=== PATIENT | male | born 1990 | race Hispanic/Latino ===

== ENCOUNTER 2021-10-07 11:28 | Emergency (ER) | payer BC ==
--- NOTE | 2021-10-07 12:44 | RAD REPORT ---
EXAM DESCRIPTION: CT - Head C Spine Mpr Wo Con - 10/07/2021 12:23 pm CLINICAL HISTORY: Head and neck injury status post fall. Head and neck pain COMPARISON: None. TECHNIQUE: Computed axial tomography of the head and cervical spine was obtained. Sagittal and coronal reconstruction was performed. All CT scans are performed using dose optimization technique as appropriate and may include automated exposure control or mA/KV adjustment according to patient size. FINDINGS: An intracranial bleed is not seen. The ventricles are normal in caliber. An extra-axial fl uid collection is not noted.Fluid within the visualized sinuses and mastoids is not seen A cervical fracture is not visualized. No dislocation is noted. A 4 millimeter round metallic foreign body is present within the right frontal bone IMPRESSION: No acute intracranial abnormality is seen. A cervical fracture is not visualized. If the patient continues to have symptoms to suggest intracra nial /spinal cord pathology then MRI would be recommended
--- NOTE | 2021-10-07 12:54 | RAD REPORT ---
EXAM DESCRIPTION: CT - Chest Abdomen Pelvis W Cont - 10/07/2021 12:37 pm CLINICAL HISTORY: Chest and abdominal pain status post fall COMPARISON: none TECHNIQUE: Computed axial tomography of the chest, abdomen and pelvis was obtained. 100 cc Isovue-30 0 was administered intravenously. Oral contrast was not requested. This limits evaluation of bowel. All CT scans are performed using dose optimization technique as appropriate and may include automated exposure control or mA/KV adjustment according to patient size. FINDINGS: A pleural effusion is not present. No pericardial effusion A pulmonary contusion is not seen. A mediastinal hematoma is not present. The liver, spleen, pancreas, adrenals, kidneys and bladder do not demonstrate a traumatic injury. IMPRESSION: No traumatic injury involving the chest, abdomen nor pelvis is seen.
--- NOTE | 2021-10-07 13:10 | RAD REPORT ---
EXAM DESCRIPTION: RAD - Tib Fib Right - 10/07/2021 1:02 pm CLINICAL HISTORY: Right leg pain FINDINGS: No fracture is seen involving the right tibia/fibula
--- NOTE | 2021-10-07 13:13 | RAD REPORT ---
EXAM DESCRIPTION: RAD - Foot Right 3 View - 10/07/2021 1:02 pm CLINICAL HISTORY: Right foot pain status post injury FINDINGS: No fracture or dislocation is seen
[2021-10-07] MEDS ORDERED: KETOROLAC 30 MG/ML INJ ONE (13:14)
[2021-10-07] MEDS ORDERED: MORPHINE 4 MG/ML SYR ONE (13:14)
[2021-10-07] MEDS ORDERED: NA CHLORIDE 0.9% 1,000 ML ONE (13:14)
[2021-10-07] MEDS ORDERED: ONDANSETRON 4 MG/2 ML VIAL ONE (13:14)
--- NOTE | 2021-10-07 13:14 | RAD REPORT ---
EXAM DESCRIPTION: RAD - Os Calcis (Calcaneus) Heel - 10/07/2021 1:02 pm CLINICAL HISTORY: Right foot pain FINDINGS: No fracture or dislocation seen
--- NOTE | 2021-10-07 13:36 | EDPHYS ---
Physician Documentation [facility] Name: Wolf Harris Age: 31 yrs Sex: Male : 1990 Arrival Date: 10/07/2021 Time: 11:29 Bed DIS2 Private MD: ED Physician Rodney Herman HPI: 10/07 13:30 This 31 yrs old Male presents to ER via Wheelchair with complaints of Head keiry Injury-Adult, Foot Injury, Fall Injury - from ladder. 13:30 The patient or guardian reports pain, tenderness. The complaints affect the top of keiry head, left frontal area, left side of the back of head, right frontal area and right side of the back of head. Context of injury: The problem was sustained outdoors, resulted from a fall, height greater than five feet, down stairs. Onset: The symptoms/episode began/occurred just prior to arrival. Associated signs and symptoms: Loss of consciousness: This patient did not experience any loss of consciousness. Severity of symptoms: At their worst the symptoms were mild, moderate, in the emergency department the symptoms are unchanged. Historical: - Allergies: 12:13 No Known Allergies; vg1 - Home Meds: 12:13 None [Active]; vg1 - PMHx: 12:13 None; vg1 - PSHx: 12:13 Appendectomy; vg1 - Immunization history:: Client reports receiving the 2nd dose of the Covid vaccine. - Social history:: Smoking status: Patient denies any tobacco usage or history of. ROS: 13:31 Constitutional: Negative for fever, chills, and weight loss, Eyes: Negative for injury, keiry pain, redness, and discharge, ENT: Negative for injury, pain, and discharge, Neck: Negative for injury, pain, and swelling, Cardiovascular: Negative for chest pain, palpitations, and edema, Respiratory: Negative for shortness of breath, cough, wheezing, and pleuritic chest pain, Abdomen/GI: Negative for abdominal pain, nausea, vomiting, diarrhea, and constipation, Back: Negative for injury and pain, : Negative for injury, bleeding, discharge, and swelling, Skin: Negative for injury, rash, and discoloration, Psych: Negative for depression, anxiety, suicide ideation, homicidal ideation, and hallucinations, Allergy/Immunology: Negative for hives, rash, and allergies, Endocrine: Negative for neck swelling, polydipsia, polyuria, polyphagia, and marked weight changes, Hematologic/Lymphatic: Negative for swollen nodes, abnormal bleeding, and unusual bruising. 13:31 MS/extremity: Positive for decreased range of motion, pain, tenderness, of the right ankle, lateral aspect of right foot, right Achilles, right heel, medial aspect of right foot, anterior aspect of right ankle and dorsum of right foot. Exam: 13:31 Constitutional: This is a well developed, well nourished patient who is awake, alert, keiry and in no acute distress. Head/Face: Normocephalic, atraumatic. Eyes: Pupils equal round and reactive to light, extra-ocular motions intact. Lids and lashes normal. Conjunctiva and sclera are non-icteric and not injected. Cornea within normal limits. Periorbital areas with no swelling, redness, or edema. ENT: Nares patent. No nasal discharge, no septal abnormalities noted. Tympanic membranes are normal and external auditory canals are clear. Oropharynx with no redness, swelling, or masses, exudates, or evidence of obstruction, uvula midline. Mucous membranes moist. Neck: Trachea midline, no thyromegaly or masses palpated, and no cervical lymphadenopathy. Supple, full range of motion without nuchal rigidity, or vertebral point tenderness. No Meningismus. Chest/axilla: Normal chest wall appearance and motion. Nontender with no deformity. No lesions are appreciated. Cardiovascular: Regular rate and rhythm with a normal S1 and S2. No gallops, murmurs, or rubs. Normal PMI, no JVD. No pulse deficits. Respiratory: Lungs have equal breath sounds bilaterally, clear to auscultation and percussion. No rales, rhonchi or wheezes noted. No increased work of breathing, no retractions or nasal flaring. Abdomen/GI: Soft, non-tender, with normal bowel sounds. No distension or tympany. No guarding or rebound. No evidence of tenderness throughout. Back: No spinal tenderness. No costovertebral tenderness. Full range of motion. Skin: Warm, dry with normal turgor. Normal color with no rashes, no lesions, and no evidence of cellulitis. Neuro: Awake and alert, GCS 15, oriented to person, place, time, and situation. Cranial nerves II-XII grossly intact. Motor strength 5/5 in all extremities. Sensory grossly intact. Cerebellar exam normal. Normal gait. Psych: Awake, alert, with orientation to person, place and time. Behavior, mood, and affect are within normal limits. 13:31 Musculoskeletal/extremity: ROM: limited active range of motion, limited passive range of motion, Circulation is intact in all extremities. Sensation intact. Compartment Syndrome exam of affected extremity: is normal. Joints: All joints are normal except Weight bearing: is unable to bear weight, DVT Exam: no swelling, negative Homans' sign noted on exam, no appreciated bluish discoloration, no erythema, no increased warmth, pain, tenderness. Vital Signs: 12:08 BP 140 / 81; Pulse 66; Resp 18; Temp 97.8; Pulse Ox 100% ; Weight 104.33 kg; Height 5 vg1 ft. 7 in. (170.18 cm); Pain 6/10; 12:08 Body Mass Index 36.02 (104.33 kg, 170.18 cm) vg1 [place] Coma Score: 12:08 Eye Response: spontaneous(4). Verbal Response: oriented(5). Motor Response: obeys vg1 commands(6). Total: 15. 12:08 Eye Response: spontaneous(4). Verbal Response: oriented(5). Motor Response: obeys ss commands(6). Total: 15. 13:05 Eye Response: spontaneous(4). Verbal Response: oriented(5). Motor Response: obeys ss commands(6). Total: 15. 13:30 Eye Response: spontaneous(4). Verbal Response: oriented(5). Motor Response: obeys keiry commands(6). Total: 15. 13:32 Eye Response: spontaneous(4). Verbal Response: oriented(5). Motor Response: obeys keiry commands(6). Total: 15. Trauma Score (Adult): 12:08 Eye Response: spontaneous(1); Verbal Response: oriented(1); Motor Response: obeys ss commands(2); Systolic BP: > 89 mm Hg(4); Respiratory Rate: 10 to 29 per min(4); Ruma Score: 15; Trauma Score: 12 13:05 Eye Response: spontaneous(1); Verbal Response: oriented(1); Motor Response: obeys ss commands(2); Systolic BP: > 89 mm Hg(4); Respiratory Rate: 10 to 29 per min(4); [place] Score: 15; Trauma Score: 12 MDM: 12:13 Patient medically screened. [facility] 13:32 Differential diagnosis: Contusion of Hematoma on Intracranial bleed- Concussion [facility] cerebral contusion, closed fracture, contusion, abrasion, fracture, sprain. Data reviewed: vital signs, nurses notes, lab test result(s), radiologic studies, CT scan, plain films. Data interpreted: behavioral medical director: not applicable for this patient encounter. Pulse oximetry: on room air is 100 %. Test interpretation: by ED physician or midlevel provider: plain radiologic studies. Counseling: I had a detailed discussion with the patient and/or guardian regarding: the historical points, exam findings, and any diagnostic results supporting the discharge/admit diagnosis, lab results, radiology results, the need for outpatient follow up, for definitive care, a orthopedic surgeon. 10/07 12:20 Order name: CT Head C Spine; Complete Time: 13:30 [facility] 10/07 12:20 Order name: Tib Fib Right XRAY; Complete Time: 13:30 [facility] 10/07 12:20 Order name: Foot Right 3 View XRAY; Complete Time: 13:30 [facility] 10/07 12:20 Order name: Os Calcis (Calcaneus) Heel XRAY; Complete Time: 13:30 [facility] 10/07 12:30 Order name: Chest Abdomen Pelvis W Cont; Complete Time: 13:30 EDMD 10/07 12:20 Order name: Ice pack; Complete Time: 13:50 [facility] 10/07 13:30 Order name: Walking boot; Complete Time: 13:46 [facility] 10/07 13:30 Order name: Crutches; Complete Time: 13:46 [facility] Administered Medications: 13:00 Drug: Ketorolac 30 mg Route: IVP; Site: right antecubital; ss 13:46 Follow up: Response: No adverse reaction; Pain is decreased ss 13:18 Drug: Zofran (Ondansetron) 4 mg Route: IVP; Site: right antecubital; ss 13:46 Follow up: Response: No adverse reaction ss 13:19 Drug: NS 0.9% 1000 ml Route: IV; Rate: 1 bolus; Site: right antecubital; ss 14:01 Follow up: IV Status: Completed infusion; IV Intake: 1000ml ss 13:23 Drug: morphine 4 mg Route: IVP; Site: right antecubital; ss 13:46 Follow up: Response: No adverse reaction; Pain is decreased ss Disposition Summary: 10/07/21 13:35 Discharge Ordered Location: Home keiry Problem: new keiry Symptoms: have improved keiry Condition: Fair keiry Diagnosis - Fall on same level, unspecified keiry - Sprain of tarsometatarsal ligament of right foot keiry - Sprain of calcaneofibular ligament of right ankle keiry - Unspecified injury of head, initial encounter keiry Followup: keiry - With: Private Physician - When: 2 - 3 days - Reason: Recheck today's complaints, Continuance of care, Re-evaluation by your physician Followup: keiry - With: Prem Sheriff MD - When: 2 - 3 days - Reason: Recheck today's complaints, Re-evaluation by your physician Discharge Instructions: - Discharge Summary Sheet keiry - Foot Contusion keiry - Foot Sprain keiry - Head Injury, Adult keiry - Fall Prevention in the Home, Adult keiry - Fall Prevention in the Home, Adult, [id number] keiry - Foot Contusion, [id number] keiry - Head Injury, Adult, [id number] keiry - Foot Pain keiry Forms: - Medication Reconciliation Form keiry - Thank You Letter keiry - Antibiotic Education keiry - Prescription Opioid Use [facility] Prescriptions: - Ibuprofen 600 mg Oral Tablet - take 1 tablet by ORAL route every 6 hours As needed take with food; 30 tablet; keiry Refills: 0, Product Selection Permitted - Tylenol-Codeine #3 300 mg-30 mg Oral - take 2 tablet by ORAL route every 4-6 hours; 20 tablet; Refills: 0, Product keiry Selection Permitted Signatures: Dispatcher [employer] Rodney Jordan MD MD cha Smirch, Shelby, RN RN Tere Noe RN RN vg1
--- NOTE | 2021-10-07 13:36 | ER ---
Nurse's Notes [facility] Name: Wolf Harris Age: 31 yrs Sex: Male : 1990 Arrival Date: 10/07/2021 Time: 11:29 Bed DIS2 Private MD: Diagnosis: Fall on same level, unspecified;Sprain of tarsometatarsal ligament of right foot;Sprain of calcaneofibular ligament of right ankle;Unspecified injury of head, initial encounter Presentation: 10/07 12:08 Chief complaint: Patient states: About 30 minutes ago pt fell off a 13ft ladder and vg1 landed on Right foot and slipped and fell back and hit back of head on concrete. Pt appears to have small cut on back of head, no bleeding noted. Pt Right foot swollen with discoloration. Pt denies headache or blurred vision. States nausea. Coronavirus screen: Vaccine status: Patient reports receiving the 2nd dose of the covid vaccine. Ebola Screen: Patient negative for fever greater than or equal to 101.5 degrees Fahrenheit, and additional compatible Ebola Virus Disease symptoms. Mechanism of Injury: The problem was sustained at work, resulted from see triage not. Initial Sepsis Screen: Does the patient meet any 2 criteria? No. Patient's initial sepsis screen is negative. Does the patient have a suspected source of infection? No. Patient's initial sepsis screen is negative. Risk Assessment: Do you want to hurt yourself or someone else? Patient reports no desire to harm self or others. Onset of symptoms was October 07, 2021. 12:08 Method Of Arrival: Wheelchair vg1 12:08 Acuity: HENNY 2 vg1 Triage Assessment: 12:13 General: Appears in no apparent distress. uncomfortable, Behavior is calm, cooperative. vg1 Pain: Complains of pain in right foot. Neuro: Level of Consciousness is awake, alert, obeys commands, Oriented to person, place, time, situation, Reports. Historical: - Allergies: 12:13 No Known Allergies; vg1 - Home Meds: 12:13 None [Active]; vg1 - PMHx: 12:13 None; vg1 - PSHx: 12:13 Appendectomy; vg1 - Immunization history:: Client reports receiving the 2nd dose of the Covid vaccine. - Social history:: Smoking status: Patient denies any tobacco usage or history of. Screenin:47 Abuse screen: Denies threats or abuse. Denies injuries from another. Nutritional ss screening: No deficits noted. Tuberculosis screening: Never had TB. Fall Risk None identified. Assessment: 12:08 General: Appears in no apparent distress. comfortable, Behavior is calm, cooperative, ss Denies fever, feeling ill, fatigue, chills. Pain: Complains of pain in medial aspect of right foot and right heel and right Achilles and lateral aspect of right foot and right ankle and right side of the back of head and top of head Pain currently is 6 out of 10 on a pain scale. Quality of pain is described as aching, tender. Cardiovascular: Pulses are all present. Respiratory: Airway is patent Trachea midline Respiratory effort is even, unlabored, Respiratory pattern is regular, symmetrical, Denies cough, shortness of breath pain with respiration, pain with cough, pain with movement. GI: Abdomen is non-distended, Abd is soft and non tender X 4 quads. : No signs and/or symptoms were reported regarding the genitourinary system. EENT: Oral mucosa is moist. Throat is clear. Derm: Skin is intact, is healthy with good turgor, Skin is dry, Skin is pink, warm \T\ dry. normal. Musculoskeletal: Swelling present in anterior aspect of right ankle. Injury Description: Abrasion sustained to top of head. 13:47 Reassessment: Patient appears in no apparent distress at this time. Patient and/or ss family updated on plan of care and expected duration. Pain level reassessed. Patient is alert, oriented x 3, equal unlabored respirations, skin warm/dry/pink. Neuro: Level of Consciousness is awake, alert. Vital Signs: 12:08 BP 140 / 81; Pulse 66; Resp 18; Temp 97.8; Pulse Ox 100% ; Weight 104.33 kg; Height 5 vg1 ft. 7 in. (170.18 cm); Pain 6/10; 12:08 Body Mass Index 36.02 (104.33 kg, 170.18 cm) vg1 [place] Coma Score: 12:08 Eye Response: spontaneous(4). Verbal Response: oriented(5). Motor Response: obeys vg1 commands(6). Total: 15. 12:08 Eye Response: spontaneous(4). Verbal Response: oriented(5). Motor Response: obeys ss commands(6). Total: 15. 13:05 Eye Response: spontaneous(4). Verbal Response: oriented(5). Motor Response: obeys ss commands(6). Total: 15. 13:30 Eye Response: spontaneous(4). Verbal Response: oriented(5). Motor Response: obeys keiry commands(6). Total: 15. 13:32 Eye Response: spontaneous(4). Verbal Response: oriented(5). Motor Response: obeys keiry commands(6). Total: 15. Trauma Score (Adult): 12:08 Eye Response: spontaneous(1); Verbal Response: oriented(1); Motor Response: obeys ss commands(2); Systolic BP: > 89 mm Hg(4); Respiratory Rate: 10 to 29 per min(4); [place] Score: 15; Trauma Score: 12 13:05 Eye Response: spontaneous(1); Verbal Response: oriented(1); Motor Response: obeys ss commands(2); Systolic BP: > 89 mm Hg(4); Respiratory Rate: 10 to 29 per min(4); Ruma Score: 15; Trauma Score: 12 ED Course: 11:29 Patient arrived in ED. am2 12:12 Wilma Castro, CHICHI is Primary Nurse. 12:13 Rodney Heramn MD is Attending Physician. keiry 12:13 Triage completed. vg1 12:13 Arm band placed on. vg1 12:23 CT Head C Spine In Process Unspecified. EDMS 12:37 Chest Abdomen Pelvis W Cont In Process Unspecified. EDMS 13:00 Inserted saline lock: 22 gauge in right antecubital area, using aseptic technique. Blood collected. 13:03 Tib Fib Right XRAY In Process Unspecified. EDMS 13:03 Foot Right 3 View XRAY In Process Unspecified. EDMS 13:03 Os Calcis (Calcaneus) Heel XRAY In Process Unspecified. EDMS 13:34 Prem Sheriff MD is Referral Physician. keiry 13:47 Patient has correct armband on for positive identification. Bed in low position. Call ss light in reach. 13:48 No provider procedures requiring assistance completed. IV discontinued, intact, ss bleeding controlled, No redness/swelling at site. Pressure dressing applied. 13:49 Crutch training done. 3D boot applied to right foot. walking boot. ss Administered Medications: 13:00 Drug: Ketorolac 30 mg Route: IVP; Site: right antecubital; ss 13:46 Follow up: Response: No adverse reaction; Pain is decreased ss 13:18 Drug: Zofran (Ondansetron) 4 mg Route: IVP; Site: right antecubital; ss 13:46 Follow up: Response: No adverse reaction ss 13:19 Drug: NS 0.9% 1000 ml Route: IV; Rate: 1 bolus; Site: right antecubital; ss 14:01 Follow up: IV Status: Completed infusion; IV Intake: 1000ml ss 13:23 Drug: morphine 4 mg Route: IVP; Site: right antecubital; ss 13:46 Follow up: Response: No adverse reaction; Pain is decreased ss Intake: 14:01 IV: 1000ml; Total: 1000ml. ss Outcome: 13:35 Discharge ordered by . keiry 14:01 Discharged to home with crutches, with family. 14:01 Condition: good 14:01 Discharge instructions given to patient, family, Instructed on discharge instructions, follow up and referral plans. medication usage, Demonstrated understanding of instructions, follow-up care, medications, Prescriptions given X 2. 14:01 Patient left the ED. ss Signatures: Dispatcher [employer] EDRodney Wallcae MD MD cha Smirch, Shelby, RN RN ss Shadia Rangel Victoria RN RN vg1
[2021-10-07 14:28] VITALS: BP 140/81; TEMP 97.8; O2SAT 100
== END 2021-10-07 14:01 | disposition home or self-care (01) ==
LOC: ER 11:28
DX: S93.621A Sprain of tarsometatarsal ligament of right foot, initial encounter (principal); S93.411A Sprain of calcaneofibular ligament of right ankle, initial encounter; S09.90XA Unspecified injury of head, initial encounter; W11.XXXA Fall on and from ladder, initial encounter; Y92.69 Other specified industrial and construction area as the place of occurrence of the external cause
CPT/HCPCS: 96361; 82565; 70450; 72125; 71260; 74177; 73650; 73630; 73590; 96375; 96374; 99284; Q9967; J7030; J2405

== ENCOUNTER 2024-11-16 19:06 | Emergency (ER) | payer BC, OTHER ==
--- OUTSIDE RECORDS SUMMARY | 2024-11-16 19:09 | XMS REPORT | Continuity of Care Document ---
Author Name Unknown Address [address] [place] [address] thconnect Address [address] [address] [address] [place] [address] Care Team Providers Care Cruise Coordinator Name Role Phone Bui_Q_LEANNAGDNU Attending Clinician Unavailable Bui_Q Attending Clinician Unavailable Bui_Q_WAGDTamyU Admitting Clinician Unavailable Bui_Q Admitting Clinician Unavailable Payers Payer Name Policy Type Policy Number Effective Date Expirati on Date Source [facility] [id number] 2021 00:00:00 [place] [employer] [place] [id number] 2022 00:00:00 Problems Condition Name Condition Details Condition Category Status Onset Date Resolution Date Last Treatment Date Treating Clinician Comments Source Liver enzymes level above reference range Liver Enzymes Level above Reference Range Problem Active 5-28 00:00: 00 [facility] Gastroesop hageal reflux disease without esophagiti s Gastroesop hageal Reflux Disease without Esophagiti s Problem Active 6-08 00:00: 00 [facility] Dyslipidem ia Dyslipidem ia Problem Active 2-20 00:00: 00 [facility] Obstructiv e sleep apnea syndrome Obstructiv e Sleep Apnea Syndrome Problem Active 2 00:00: 00 [facility] Urticaria Urticaria Problem Active 12-17 00:00: 00 [facility] Social History Smoking Status Start Date Stop Date Source Current Some Day Smoker [facility] Medications Ordered Medication Name Filled Medication Name Start Date Stop Date Current Medication? Ordering Clinician Indication Dosage Frequency Signature (SIG) Comments Components Source clotrimazol e 1 % topical cream APPLY TO THE AFFECTED AND SURROUNDING AREAS OF SKIN BY TOPICAL ROUTE 2 TIMES PER DAY IN THE MORNING AND EVENING clotrimazol e 1 % topical cream APPLY TO THE AFFECTED AND SURROUNDING AREAS OF SKIN BY TOPICAL ROUTE 2 TIMES PER DAY IN THE MORNING AND EVENING No clotrimazo le 1 % topical cream APPLY TO THE AFFECTED AND SURROUNDIN G AREAS OF SKIN BY TOPICAL ROUTE 2 TIMES PER DAY IN THE MORNING AND EVENING [facility] Lac-Hydrin Five 5 % lotion apply twice daily for 10 days Lac-Hydrin Five 5 % lotion apply twice daily for 10 days No Lac-Hydrin Five 5 % lotion apply twice daily for 10 days [facility] pantoprazol e 40 mg tablet,sabiha yed release Take 1 tablet every day by oral route for 30 days. pantoprazol e 40 mg tablet,sabiha yed release Take 1 tablet every day by oral route for 30 days. No 1 Q1D pantoprazo le 40 mg tablet,del ayed release Take 1 tablet every day by oral route for 30 days. [facility] triamcinolo ne acetonide 0.1 % topical cream APPLY A THIN LAYER TO THE AFFECTED AREA(S) BY TOPICAL ROUTE 2 TIMES PER DAY for 10 days triamcinolo ne acetonide 0.1 % topical cream APPLY A THIN LAYER TO THE AFFECTED AREA(S) BY TOPICAL ROUTE 2 TIMES PER DAY for 10 days No triamcinol one acetonide 0.1 % topical cream APPLY A THIN LAYER TO THE AFFECTED AREA(S) BY TOPICAL ROUTE 2 TIMES PER DAY for 10 days [facility] Immunizations Ordered Immunization Name Filled Immunization Name Date Status Comments Source COVID-19, mRNA, LNP-S, PF, 30 mcg/0.3 mL dose (Pfizer-BioNTech) COVID-19, mRNA, LNP-S, PF, 30 mcg/0.3 mL dose (Pfizer-BioNTech) Unknown Completed [facility] Vital Signs Vital Name Observation Time Observation Value Comments S ource Body Weight 2024-04-03 00:00:00 211 [lb_av] Romario waltere [facility] BMI (Body Mass Index) 2024-04-03 00:00:00 31.2 kg/m2 [facility] Height 2024-04-03 00:00:00 69 [in_i] Ysed ge [facility] BP Systolic 2024-04-03 00:00:00 121 mm[Hg] [facility] BP Diastolic 2024-04-03 00:00:00 98 mm[Hg] [facility] BP Diastolic 2022-06-07 00:00:00 83 mm[Hg] [facility] Height 2022-06-07 00:00:00 67 [in_i] [facility] BMI (Body Mass Index) 2022-06-07 00:00:00 35.1 kg/m2 [facility] Practice BP Systolic 2022-06-07 00:00:00 127 mm[Hg] [facility] Body Weight 2022-06-07 00:00:00 224 [lb_av] [facility] BP Diastolic 2021-04-14 00:00:00 74 mm[Hg] [facility] Height 2021-04-14 00:00:00 67 [in_i] [facility] BMI (Body Mass Index) 2021-04-14 00:00:00 34.6 kg/m2 [facility] BP Systolic 2021-04-14 00:00:00 111 mm[Hg] [facility] Body Weight 2021-04-14 00:00:00 221 [lb_av] [facility] BMI (Body Mass Index) 2020-12-17 00:00:00 34.5 kg/m2 [facility] Body Weight 2020-12-17 00:00:00 220 [lb_av] [facility] Height 2020-12-17 00:00:00 67 [in_i] [facility] BP Diastolic 2019-12-17 00:00:00 80 mm[Hg] [facility] Height 2019-12-17 00:00:00 67.5 [in_i] [facility] BMI (Body Mass Index) 2019-12-17 00:00:00 34.6 kg/m2 [facility] BP Systolic 2019-12-17 00:00:00 129 mm[Hg] [facility] Body Weight 2019-12-17 00:00:00 224 [lb_av] [facility] Procedures Procedure Date / Time Performed Performing Clinicia n Source Extraction of [place] [facility] Appendectomy [facility] Encounters Start Date/Time End Date/Time Encounter Type Admission Type Attending Clinicians Care Facility Care Department Encounter ID Source 2024-04-03 00:00:00 2024-04-03 00:00:00 Maribell Oropeza, : [id number], [address], [place] [address] , Ph. VFP [place] - [facility] - [place] - [facility] [id number] [facility] 2022-09-07 00:00:00 2022-09-07 00:00:00 Outpatient Bui_Q_WAGDN U VFP VFP [id number] [facility] 2022-09-07 00:00:00 2022-09-07 00:00:00 Outpatient Bui_Q VFP VFP [id number] [facility] 2022-09-07 00:00:00 2022-09-07 00:00:00 Outpatient Bui_Q_WAGDN U VFP VFP [id number] [facility] 2022-08-03 00:00:00 2022-08-03 00:00:00 Outpatient Bui_Q_WAGDN U VFP VFP [id number] [facility] 2022-06-29 00:00:00 2022-06-29 00:00:00 Outpatient Bui_Q_WAGDN U VFP VFP [id number] [facility] 2022-06-11 00:00:00 2022-06-11 00:00:00 Outpatient Bui_Q VFP VFP [id number] [facility] 2022-06-07 00:00:00 2022-06-07 00:00:00 Outpatient Bui_Q VFP VFP [id number] [facility] 2022-06-07 00:00:00 2022-06-07 00:00:00 Adams Garcia MD: [id number], [address], [place] [address] , Ph. VFP [place] - [facility] - [facility] [id number] [facility] 2022-02-02 09:48:00 2022-02-02 09:48:00 Outpatient Bui_Q_WAGDN U VFP VFP [id number] [facility] 2022-02-02 00:00:00 2022-02-02 00:00:00 Outpatient Bui_Q_WAGDN U VFP VFP [id number] [facility] 2021-10-26 06:27:00 2021-10-26 06:27:00 Outpatient Bui_Q VFP VFP [id number] [facility] 2021-10-26 00:00:00 2021-10-26 00:00:00 Outpatient Bui_Q VFP VFP [id number] [facility] 2021-08-11 01:51:00 2021-08-11 01:51:00 Outpatient Bui_Q_WAG VFP VFP [id number] [facility] 2021-07-07 01:12:00 2021-07-07 01:12:00 Outpatient Bui_Q_WAG VFP VFP [id number] [facility] 2021-06-02 12:57:00 2021-06-02 12:57:00 Outpatient Bui_Q_WAG VFP VFP [id number] [facility] 2021-04-28 01:21:00 2021-04-28 01:21:00 Outpatient Bui_Q_WAG VFP VFP [id number] [facility] 2021-04-28 01:21:00 2021-04-28 01:21:00 Outpatient Bui_Q VFP VFP [id number] [facility] 2021-04-28 01:21:00 2021-04-28 01:21:00 Outpatient Bui_Q_WAG VFP VFP [id number] [facility] 2021-04-17 06:03:00 2021-04-17 06:03:00 Outpatient Bui_Q_WAG VFP VFP [id number] [facility] 2021-04-14 10:14:00 2021-04-14 10:14:00 Outpatient Bui_Q_WAG VFP VFP [id number] [facility] 2021-04-14 00:00:00 2021-04-14 00:00:00 Adams Garcia MD: [address] [place] [phone] , Ph. VFP [place] - [facility] - VM_HOU_[facility] (WAG) [id number] [facility] 2021-04-13 04:29:00 2021-04-13 04:29:00 Outpatient Bui_Q_WAG VFP VFP [id number] [facility] 2021-01-22 02:39:00 2021-01-22 02:39:00 Outpatient Bui_Q_WAG VFP VFP [id number] [facility] 2020-12-23 02:47:00 2020-12-23 02:47:00 Outpatient Bui_Q VFP VFP [id number] [facility] 2020-12-23 02:47:00 2020-12-23 02:47:00 Outpatient Bui_Q VFP VFP [id number] [facility] 2020-12-23 02:47:00 2020-12-23 02:47:00 Outpatient Bui_Q VFP VFP [id number] [facility] 2020-12-17 12:21:00 2020-12-17 12:21:00 Outpatient Bui_Q_WAG VFP VFP [id number] [facility] 2020-12-17 00:00:00 2020-12-17 00:00:00 Gian Hall MD: [address] [place] [phone] , Ph. VFP [place] - [facility] - [facility] (WAG) [id number] [facility] 2020-12-14 02:24:00 2020-12-14 02:24:00 Outpatient Bui_Q_WAG VFP VFP [id number] [facility] 2020-05-07 07:40:00 2020-05-07 07:40:00 Outpatient Bui_Q_WAG VFP VFP [id number] [facility] 2020-03-12 12:48:00 2020-03-12 12:48:00 Outpatient Bui_Q VFP VFP [id number] [facility] 2020-03-12 12:48:00 2020-03-12 12:48:00 Outpatient Bui_Q VFP VFP [id number] [facility] 2020-03-12 12:48:00 2020-03-12 12:48:00 Outpatient Bui_Q VFP VFP [id number] [facility] 2020-03-12 12:48:00 2020-03-12 12:48:00 Outpatient Bui_Q_WAG VFP VFP [id number] [facility] 2020-03-12 12:48:00 2020-03-12 12:48:00 Outpatient Bui_Q VFP VFP [id number] [facility] 2020-02-06 01:16:00 2020-02-06 01:16:00 Outpatient Bui_Q_WAG VFP VFP [id number] [facility] 2020-01-02 07:37:00 2020-01-02 07:37:00 Outpatient Bui_Q_WAG VFP VFP [id number] [facility] 2019-12-21 04:09:00 2019-12-21 04:09:00 Outpatient Bui_Q_WAG VFP VFP [id number] [facility] 2019-12-21 04:09:00 2019-12-21 04:09:00 Outpatient Bui_Q VFP VFP [id number] [facility] 2019-12-17 02:16:00 2019-12-17 02:16:00 Outpatient Bui_Q_WAG VFP VFP [id number] [facility] 2019-12-17 00:00:00 2019-12-17 00:00:00 Adams Garcia MD: [address] [facility], [address], [place] [address] , Ph. VFP [place] - [facility] - _HOU_[facility] (WAG) [id number] [facility] 2019-09-13 02:50:00 2019-09-13 02:50:00 Outpatient Bui_Q VFP VFP [id number] [facility] 2019-09-13 02:50:00 2019-09-13 02:50:00 Outpatient Bui_Q VFP VFP [id number] [facility] 2019-09-13 02:50:00 2019-09-13 02:50:00 Outpatient Bui_Q VFP VFP [id number] [facility]
[2024-11-16] MEDS ORDERED: ALBUTEROL 2.5 MG/3 ML NEB SOL ONE ×2 (19:43→20:25)
[2024-11-16] MEDS ORDERED: IPRATROPIUM BROM 0.5MG/2.5ML ONE (19:43)
[2024-11-16] MEDS ORDERED: predniSONE 20 MG TAB ONE (19:44)
--- NOTE | 2024-11-16 20:21 | RAD REPORT ---
EXAMINATION: TWO VIEW CHEST XR CLINICAL INDICATION: Male, [address] [facility] MAIN COUGH Bed: TECHNIQUE: 2 view radiographs of the chest were performed. COMPARISON: No prior exam. FINDINGS: Perihilar densities and bronchial wall thickening. No other focal airspace consolidation. No pneumoth orax or sizable effusion. The heart is normal in size. Mediastinal contours are unremarkable. IMPRESSION: Findings suggestive of reactive airway changes or viral infection without evidence of focal pneumonia .
--- NOTE | 2024-11-16 20:28 | EDPHYS ---
Physician Documentation [facility] Name: Wolf Harris Age: 34 yrs Sex: Male : 1990 Arrival Date: 11/16/2024 Time: 19:06 Bed 10 Private MD: ED Physician Dion Salinas HPI: 11/16 19:16 This 34 yrs old Male presents to ER via Unassigned with complaints of Cough, kb Congestion, Breathing Difficulty. 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 States this happened last time her welded this material as well. Denies congestion, fever, runny nose. . Historical: - Allergies: 19:33 No Known Allergies; tm6 - PMHx: 19:33 None; tm6 - PSHx: 19:33 Appendectomy; tm6 - Immunization history:: Flu vaccine is not up to date. - Infectious Disease History:: Denies. - Social history:: Smoking status: Patient denies any tobacco usage or history of. ROS: 19:16 Constitutional: As per HPI kb Exam: 19:18 Constitutional: This is a well developed, well nourished patient who is awake, alert, kb and in no acute distress. Head/Face: Normocephalic, atraumatic. ENT: Moist Mucous membranes Cardiovascular: Regular rate Respiratory: Respirations even and unlabored. No increased work of breathing. Talking in full sentences Skin: Warm, dry with normal turgor. Normal color. MS/ Extremity: Pulses equal, no cyanosis. Neurovascular intact. Full, normal range of motion. Neuro: Awake and alert, GCS 15, oriented to person, place, time, and situation. Vital Signs: 19:33 BP 136 / 87; Pulse 74; Resp 17; Temp 98.3(O); Pulse Ox 96% on R/A; MAP 101 mmHg; Weight tm6 109.77 kg; Height 5 ft. 7 in. ; Pain 0/10; 19:33 Body Mass Index 37.90 (109.77 kg, 170.18 cm) tm6 19:33 Pain Scale: Adult tm6 MDM: 19:11 Medical Screening Exam initiated kb 20:26 Differential Diagnosis: Bronchitis Pneumonia. Data reviewed: vital signs, nurses notes. kb Test considered but Not performed: Labs: flu and covid tests considered but pt has had no fever, congestion. States the symptoms started after welding . Historians other than the Patient: Spouse/Significant Other: . Counseling: I had a detailed discussion with the patient and/or guardian regarding the historical points, exam findings, and any diagnostic results supporting the discharge/admit diagnosis, radiology results, the need for outpatient follow up, a family practitioner, to return to the emergency department if symptoms worsen or persist or if there are any questions or concerns that arise at home. 11/16 19:18 Order name: Chest Pa And Lat (2 Views) XRAY; Complete Time: 20:22 kb Administered Medications: 19:50 Drug: predniSONE PO 40 mg PO once Route: PO; jb4 20:18 Follow up: Response: No adverse reaction; Marked relief of symptoms jb4 19:50 Drug: Albuterol Inhalation 2.5 mg Inhalation once Route: Inhalation; jb4 20:18 Follow up: Response: No adverse reaction; Marked relief of symptoms; Wheezing diminishedjb4 19:50 Drug: Ipratropium Inhalation Aerosol 0.5 mg Inhalation once Route: Inhalation; jb4 20:18 Follow up: Response: No adverse reaction; Marked relief of symptoms; Wheezing diminishedjb4 20:26 Not Given (Duplicate Order): albuterol2.5 mg Inhalation once jb4 20:27 Drug: Albuterol Inhalation 2.5 mg Inhalation once Route: Inhalation; jb4 20:45 Follow up: Response: No adverse reaction; Marked relief of symptoms; Wheezing diminishedjb4 Disposition: 20:20 I was immediately available on-site in the Emergency Department for consultation in the ms3 care of the patient. Disposition Summary: 11/16/24 20:28 Discharge Ordered Notes: Location: Home kb Condition: Stable kb Diagnosis - Cough kb Followup: kb - With: Emergency Department - When: As needed - Reason: Worsening of condition Followup: kb - With: Private Physician - When: 2 - 3 days - Reason: Recheck today's complaints, Continuance of care, Re-evaluation by your physician Discharge Instructions: - Discharge Summary Sheet kb - Cough, Adult, Craz-fk-Obln kb Forms: - Medication Reconciliation Form kb - Antibiotic Education kb - Prescription Opioid Use kb - Patient Portal Instructions kb - Leadership Thank You Letter kb Prescriptions: - albuterol sulfate 90 mcg/actuation Inhalation HFA Aerosol Inhaler - inhale 2 puff INHALATION route every 4-6 hours As needed; 1 unit; Refills: 0, kb Product Selection Permitted - Prednisone 20 mg Oral Tablet - take 1 tablet ORAL route once daily for 5 days; 5 tablet; Refills: 0, Product kb Selection Permitted Signatures: Dispatcher [employer] Juliette Choe, RUTH-Brandt Wolfe, RN RN jb4 Dion Salinas DO DO ms3 Marcie Butelr, RN RN tm6
--- NOTE | 2024-11-16 20:28 | ER ---
Nurse's Notes [facility] Name: Wolf Harris Age: 34 yrs Sex: Male : 1990 Arrival Date: 11/16/2024 Time: 19:06 Bed 10 Private MD: Diagnosis: Cough Presentation: 11/16 19:31 Chief complaint: Patient states: welding stainless steel two days ago, started to tm6 cough, couldn't catch my breath, headache, wheezing. Two weeks ago I welded stainless steel and the same thing happened. Coronavirus screen: Client denies travel out of the [place] in the last 14 days. Ebola Screen: Patient negative for fever greater than or equal to 101.5 degrees Fahrenheit, and additional compatible Ebola Virus Disease symptoms Patient denies exposure to infectious person. Patient denies travel to an Ebola-affected area in the 21 days before illness onset. No symptoms or risks identified at this time. 19:31 Method Of Arrival: Ambulatory tm6 19:31 Onset of symptoms was November 14, 2024. tm6 19:36 Initial Sepsis Screen: Does the patient meet any 2 criteria? No. Patient's initial tm6 sepsis screen is negative. Does the patient have a suspected source of infection? No. Patient's initial sepsis screen is negative. Risk Assessment: Do you want to hurt yourself or someone else? Patient reports no desire to harm self or others. 19:36 Acuity: HENNY 4 tm6 Historical: - Allergies: 19:33 No Known Allergies; tm6 - PMHx: 19:33 None; tm6 - PSHx: 19:33 Appendectomy; tm6 - Immunization history:: Flu vaccine is not up to date. - Infectious Disease History:: Denies. - Social history:: Smoking status: Patient denies any tobacco usage or history of. Screenin:47 [facility] ED Fall Risk Assessment (Adult) History of falling in the last 3 months, jb4 including since admission No falls in past 3 months (0 pts) Confusion or Disorientation No (0 pts) Intoxicated or Sedated No (0 pts) Impaired Gait No (0 pts) Mobility Assist Device Used No (0 pt) Altered Elimination No (0 pt) Score/Fall Risk Level 0 - 2 = Low Risk Oriented to surroundings, Maintained a safe environment. Abuse screen: Denies threats or abuse. Nutritional screening: No deficits noted. Tuberculosis screening: No symptoms or risk factors identified. Assessment: 19:47 General: Appears in no apparent distress. uncomfortable, Behavior is calm, cooperative, jb4 appropriate for age. Pain: Denies pain. Neuro: Level of Consciousness is awake, alert, obeys commands, Oriented to person, place, time, situation. Cardiovascular: Patient's skin is warm and dry. Respiratory: Reports shortness of breath cough that is dry, persistent Airway is patent Respiratory effort is even, unlabored, Respiratory pattern is regular, symmetrical, Breath sounds with wheezes bilaterally. Derm: Skin is intact, Skin is pink, warm \T\ dry. Musculoskeletal: Circulation, motion, and sensation intact. Range of motion: intact in all extremities. 20:17 Reassessment: Patient appears in no apparent distress at this time. Patient and/or jb4 family updated on plan of care and expected duration. Pain level reassessed. Patient is alert, oriented x 3, equal unlabored respirations, skin warm/dry/pink. Wheezing is diminished but still noted BEVERLY Patient states symptoms have improved. Vital Signs: 19:33 BP 136 / 87; Pulse 74; Resp 17; Temp 98.3(O); Pulse Ox 96% on R/A; MAP 101 mmHg; Weight tm6 109.77 kg; Height 5 ft. 7 in. ; Pain 0/10; 19:33 Body Mass Index 37.90 (109.77 kg, 170.18 cm) tm6 19:33 Pain Scale: Adult tm6 ED Course: 19:10 Patient arrived in ED. gm2 19:11 Juliette Olson FNP-C [facility] kb 19:11 Dion Salinas DO is Attending Physician. kb 19:35 Arm band placed on left wrist. tm6 19:36 Triage completed. tm6 19:39 Chest Pa And Lat (2 Views) XRAY In Process Unspecified. EDMS 20:17 Brandt Leslie, CHICHI is Primary Nurse. jb4 20:44 Patient has correct armband on for positive identification. Bed in low position. Call jb4 light in reach. Side rails up X 1. Provided Education on: discharge instructions.. 20:44 No provider procedures requiring assistance completed. Patient admitted, IV remains in jb4 place. Administered Medications: 19:50 Drug: predniSONE PO 40 mg PO once Route: PO; jb4 20:18 Follow up: Response: No adverse reaction; Marked relief of symptoms jb4 19:50 Drug: Albuterol Inhalation 2.5 mg Inhalation once Route: Inhalation; jb4 20:18 Follow up: Response: No adverse reaction; Marked relief of symptoms; Wheezing diminishedjb4 19:50 Drug: Ipratropium Inhalation Aerosol 0.5 mg Inhalation once Route: Inhalation; jb4 20:18 Follow up: Response: No adverse reaction; Marked relief of symptoms; Wheezing diminishedjb4 20:26 Not Given (Duplicate Order): albuterol2.5 mg Inhalation once jb4 20:27 Drug: Albuterol Inhalation 2.5 mg Inhalation once Route: Inhalation; jb4 20:45 Follow up: Response: No adverse reaction; Marked relief of symptoms; Wheezing diminishedjb4 Medication: 19:47 VIS not applicable for this client. jb4 Outcome: 20:28 Discharge ordered by . kb 20:44 Discharged to home ambulatory, jb4 20:44 Condition: stable 20:44 Discharge instructions given to patient, Instructed on discharge instructions, follow up and referral plans. medication usage, Demonstrated understanding of instructions, follow-up care, medications, Prescriptions given X 2, 20:45 Patient left the ED. jb4 Signatures: Dispatcher [employer] EDMS Juliette Olson, SLOT FLOOR ATTENDANT-C SLOT FLOOR ATTENDANT-Brandt Erwin, RN RN jb4 Deborah Schmidt 2 Marcie Butler RN RN tm6 Corrections: (The following items were deleted from the chart) 19:49 19:47 [facility] ED Fall Risk Assessment (Adult) History of falling in the last 3 months, jb4 including since admission No falls in past 3 months (0 pts) Confusion or Disorientation No (0 pts) Intoxicated or Sedated No (0 pts) Impaired Gait No (0 pts) Mobility Assist Device Used No (0 pt) Altered Elimination No (0 pt) Score/Fall Risk Level 0 - 2 = Low Risk jb4 20:18 19:47 Respiratory: Reports shortness of breath cough that is dry, persistent Airway is jb4 patent Respiratory effort is even, unlabored, Respiratory pattern is regular, symmetrical, jb4
[2024-11-16 20:52] VITALS: BP 136/87; TEMP 98.3; O2SAT 96
== END 2024-11-16 20:45 | disposition home or self-care (01) ==
LOC: ER 19:06
DX: R05.9 Cough, unspecified (principal)
CPT/HCPCS: 71046; 99284; J7512; J7613 ×2; J7644